=== PATIENT | male | born 1985 | race American Indian/Alaskan Native ===

== ENCOUNTER 2018-09-10 17:08 | Emergency (ER) | payer OTHER ==
[2018-09-10 17:21] VITALS: BP 137/64
--- NOTE | 2018-09-10 17:23 | Emergency Department Report ---
Chief Complaint: Dental/Oral Stated Complaint: TOOTH PAIN Time Seen by Provider: 09/10/18 17:19 - HPI History of Present Illness: Pt presents to the ED with c/o upper and lower right sided dental pain that began last night. Pt states he needs a root canal and wisdom tooth pulled. He last saw the dentist a year ago. The patient states he has an appointment on 09/15/18 with his dentist. Pt denies any fever, facial edema, N/V. Pt denies any PMHx. Pt denies any medications allergies. MSE screening note: Focused history and physical exam performed. Due to findings the following was ordered: ED Disposition for MSE Condition: Stable
--- NOTE | 2018-09-10 17:26 | Emergency Department Report ---
ED ENT HPI - General Chief complaint: Dental/Oral Stated complaint: TOOTH PAIN Time Seen by Provider: 09/10/18 17:19 Source: patient Mode of arrival: Ambulatory Limitations: No Limitations - History of Present Illness Initial comments: Pt presents to the ED with c/o upper and lower right sided dental pain that began last night. Pt states he needs a root canal and wisdom tooth pulled. He last saw the dentist a year ago. The patient states he has an appointment on 09/15/18 with his dentist. Pt denies any fever, facial edema, N/V. Pt denies any PMHx. Pt denies any medications allergies. - Related Data Previous Rx's Medication Instructions Recorded Last Taken Type Acetaminophen/Codeine [Tylenol 1 tab PO Q6H PRN #10 tab 09/10/18 Unknown Rx /Codeine # 3 tab] Amoxicillin/K Clav Tab [Augmentin 1 tab PO Q12HR 7 Days #14 tab 09/10/18 Unknown Rx 875 mg] Ibuprofen 600 mg PO Q6HR PRN #20 tablet 09/10/18 Unknown Rx Allergies Allergy/AdvReac Type Severity Reaction Status Date / Time No Known Allergies Allergy Unverified 09/10/18 17:12 ED Dental HPI - General Chief complaint: Dental/Oral Stated complaint: TOOTH PAIN Time Seen by Provider: 09/10/18 17:19 Source: patient Mode of arrival: Ambulatory Limitations: No Limitations - Related Data Previous Rx's Medication Instructions Recorded Last Taken Type Acetaminophen/Codeine [Tylenol 1 tab PO Q6H PRN #10 tab 09/10/18 Unknown Rx /Codeine # 3 tab] Amoxicillin/K Clav Tab [Augmentin 1 tab PO Q12HR 7 Days #14 tab 09/10/18 Unknown Rx 875 mg] Ibuprofen 600 mg PO Q6HR PRN #20 tablet 09/10/18 Unknown Rx Allergies Allergy/AdvReac Type Severity Reaction Status Date / Time No Known Allergies Allergy Unverified 09/10/18 17:12 ED Review of Systems ROS: Stated complaint: TOOTH PAIN Other details as noted in HPI Comment: All other systems reviewed and negative ED Past Medical Hx - Past Medical History Previous Medical History?: No - Surgical History Past Surgical History?: No - Social History Smoking Status: Current Every Day Smoker Substance Use Type: Marijuana - Medications Home Medications: Home Medications Medication Instructions Recorded Confirmed Last Taken Type Acetaminophen/Codeine [Tylenol 1 tab PO Q6H PRN #10 tab 09/10/18 Unknown Rx /Codeine # 3 tab] Amoxicillin/K Clav Tab [Augmentin 1 tab PO Q12HR 7 Days #14 tab 09/10/18 Unknown Rx 875 mg] Ibuprofen 600 mg PO Q6HR PRN #20 tablet 09/10/18 Unknown Rx ED Physical Exam - General Limitations: No Limitations General appearance: alert, in no apparent distress - Head Head exam: Present: atraumatic, normocephalic - Eye Eye exam: Present: normal appearance, PERRL - ENT ENT exam: Present: normal orophraynx, other (partial wisdom tooth growing in on the right lower jaw, partially cracked tooth on the right upper tooth, no obvious fluctuance, no obvious induration, uvula is midline) - Respiratory Respiratory exam: Present: normal lung sounds bilaterally. Absent: respiratory distress, wheezes, rales, rhonchi, stridor, chest wall tenderness, accessory muscle use, decreased breath sounds, prolonged expiratory - Cardiovascular Cardiovascular Exam: Present: regular rate, normal rhythm, normal heart sounds. Absent: systolic murmur, diastolic murmur, rubs, gallop - Neurological Exam Neurological exam: Present: alert, oriented X3 - Psychiatric Psychiatric exam: Present: normal affect, normal mood - Skin Skin exam: Present: warm, dry, intact ED Course Vital Signs 09/10/18 17:19 Temperature 98 F Pulse Rate 60 Blood Pressure 137/64 ED Medical Decision Making - Medical Decision Making VSS. on examination pt has a wisdom tooth partially coming in on the right lower side and a cracked tooth on the right upper side, no signs of dental abscess. pt given abx, pain medication, and anti-inflammatory. advised to take medication as prescribed. do not drive or operate heavy machinery on pain medication. keep appt with dentist on 09/15/18. Follow up with PCP in the next 2-3 days. Return to the ED for any new or worsening symptoms. Critical care attestation.: If time is entered above; I have spent that time in minutes in the direct care of this critically ill patient, excluding procedure time. ED Disposition Clinical Impression: Pain due to dental caries, Cracked tooth Disposition: TO HOME OR SELFCARE Is pt being admited?: No Does the pt Need Aspirin: No Condition: Stable Instructions: Dental Caries (ED), Toothache (ED) Additional Instructions: Please keep your appointment with your dentist on 09/15/18. Please take all medication as prescribed. Please drink plenty of fluids. Return to the ED for any new or worsening symptoms. Follow up with your primary care doctor in the next 2-3 days. Prescriptions: Amoxicillin/K Clav Tab [Augmentin 875 mg] 1 tab PO Q12HR 7 Days #14 tab Ibuprofen 600 mg PO Q6HR PRN #20 tablet PRN Reason: Pain, Moderate (4-6) Acetaminophen/Codeine [Tylenol /Codeine # 3 tab] 1 tab PO Q6H PRN #10 tab PRN Reason: Pain , Severe (7-10) Referrals: [facility] [Provider Group] - 2-3 Days your, dentist [Other] - 2-3 Days Time of Disposition: 17:52 Print Language: LITHUANIAN
== END 2018-09-10 18:25 | disposition home or self-care (01) ==
LOC: ED 17:08
DX: K03.81 Cracked tooth (principal); K02.9 Dental caries, unspecified
CPT/HCPCS: 99282